=== PATIENT | female | born 1950 | race Caucasian/White ===

== ENCOUNTER 2021-07-16 00:45 | Emergency (ER) | payer MEDICARE, OTHER, SELFPAY ==
[2021-07-16] VITALS (37 sets, daily range): BP systolic 140–210; BP diastolic 64–110; PULSE 82–113; RESP 14–28; TEMP 37.2; O2SAT 89–97; BMI 24.6
--- NOTE | 2021-07-16 00:56 | DI.CT.S_ITS ---
PROCEDURE: CT STROKE INDICATIONS: stroke symptoms TECHNIQUE: Noncontrast 4.5 mm thick angled axial sections acquired from the foramen magnum to the vertex, with coronal reformats. For radiation dose reduction, the following was used: automated exposure control, adjustment of mA and/or kV according to patient size. COMPARISON: None. FINDINGS: Image quality: Excellent. CSF spaces: Basal cisterns are patent. No extra-axial fluid collections. The ventricles are symmetric in size and shape. Brain: No acute intracranial hemorrhage. There is loss of acevedo-white matter differentiation within the left parietal lobe and possibly the left posterior temporal lobe and left occipital lobe, suspicious for acute infarct. A punctate calcification is seen in the left globus pallidus. There is cerebral volume loss for age, with resultant ventricular and sulcal prominence. There are periventricular and deep white matter chronic small vessel ischemic changes. There is intracranial internal carotid artery atherosclerosis. Skull and face: Calvarium and visualized facial bones appear intact, without suspicious lesions. Sinuses: Visualized sinuses and mastoids are clear. IMPRESSION: Loss of acevedo-white matter differentiation in the left parietal lobe and possibly the posterior left temporal lobe and left occipital lobe is suspicious for acute infarct. No mass effect or hemorrhagic conversion. Findings were discussed with the referring physician, Dr. Carolina, by telephone on 07/16/2021 at 1:27 AM. This study fulfills neurological imaging criteria for inclusion or exclusion of acute stroke therapies based on available published neurological guidelines. Dictated by: Minh Smith M.D. on 07/16/2021 at 1:23 Approved by: Minh Smith M.D. on 07/16/2021 at 1:30
--- NOTE | 2021-07-16 00:57 | DI.CT.S_ITS ---
PROCEDURE: CT ANGIO HEAD AND NECK INDICATIONS: stroke symptoms TECHNIQUE: After the administration of intravenous contrast, 1 mm thick sections acquired from the aortic arch through the [place]. Post-contrast 4.5 mm thick sections then re-acquired from the foramen magnum to the vertex. 3-dimensional jqvxbzj-tphmbmcyz-avyzuaegep (MIP) and/or volume rendering reformats were acquired of the central intracranial vasculature and neck separately. COMPARISON: None. FINDINGS: Image quality: Excellent. BRAIN: CSF spaces: Ventricles are normal in size and shape. Basal cisterns are patent. No extra-axial fluid collections. Brain: No midline shift. No intracranial bleeds or masses. Ghosh-white matter interface appears intact. Skull and face: Calvarium and facial bones appear intact, without suspicious lesions. Orbits appear normal. Sinuses: Sinuses and mastoids are clear. HEAD CT ANGIOGRAPHY: Anterior circulation: Intracranial internal carotid arteries are normal in size and flow. There is a hypoplastic A1 segment of the right anterior cerebral artery, with predominant filling of the distal right DAVE via a patent anterior communicating artery. There is occlusion of a posterior M3/M4 branch of the left middle cerebral artery (88-89/13). There appears to be some retrograde filling via collateral vessels. The right middle cerebral artery is patent. No aneurysms are seen. Posterior circulation: Visualized portions of the vertebral arteries demonstrate normal caliber, and join to form a normal appearing basilar artery. The right MANDARIN TEACHER is fed primarily via a large posterior communicating artery. Flow within the posterior cerebral arteries is normal and symmetric. No aneurysms are seen. NECK CT ANGIOGRAPHY: Carotid system: The great vessels demonstrate a conventional anatomy as they arise from the aortic arch. The origins of the common carotid arteries appear patent. The common carotid arteries demonstrate normal caliber and courses. The bifurcation regions are both widely patent. The internal carotid arteries demonstrate normal calibers. Tortuosity of the internal carotid arteries is seen bilaterally with a somewhat spiral appearance of the left internal carotid artery. Posterior circulation: The origins of the vertebral arteries both appear widely patent. The more superior extracranial portions of both vertebral arteries also demonstrate normal courses and calibers. They join to form a normal appearing basilar artery. Soft tissues: Visualized neck soft tissues demonstrate no suspicious abnormalities. A large right pleural effusion is seen with nodular thickening of the right pleural surface that is suspicious for malignant involvement. Bones: No suspicious bony lesions. Multilevel degenerative changes are seen in the spine. IMPRESSION: 1. 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 Some distal flow is seen via collateral vessels. No proximal vessel occlusion is seen. 2. No hemodynamically significant stenosis or occlusion within the major vessels of the neck. 3. Left parietal loss of ghosh-white matter differentiation is again seen that is suspicious for an acute stroke. No mass effect or hemorrhagic conversion. 4. Large right pleural effusion with associated nodular pleural thickening is suspicious for malignant involvement of the pleura. Findings were discussed with the referring physician, Dr. Carolina, by telephone on 07/16/2021 at 1:49 AM. Any quantitative measurements of stenosis were performed using NASCET criteria. Dictated by: Minh Smith M.D. on 07/16/2021 at 1:32 Approved by: Minh Smith M.D. on 07/16/2021 at 1:55
--- NOTE | 2021-07-16 00:58 | ED_ITS ---
HPI - General Adult <Zuleyma Carolina MD - Last Filed: 07/20/21 18:11> General Chief complaint: Neuro Symptoms/Deficit Stated complaint: pos. stroke Time Seen by Provider: 07/16/21 00:54 History of Present Illness HPI narrative: 70-year-old woman [place] with her reporting an episode of significant dizziness around 9 or 10:00 a.m. on July 15. It lasted for approximately an hour she felt better. Around dinner time her husba nd noted that she was less responsive and more fatigued she went to bed at 8:00 a.m. woke up at midnight with obvious deficits and not making any sense. notes that she has not had a fever but has reported a mild cough over the last week or so. He does not think that she has had any chest pain, vomiting, diarrhea, abdominal pain, headaches or other complaints recently. She is unable to offer much history or directly answer questions reliably. Related Data Home Medications Medication Instructions Recorded Confirmed atorvastatin 40 mg tablet mg 07/16/21 azelastine 137 mcg (0.1 %) nasal INTRANASAL 07/16/21 spray aerosol Allergies Allergy/AdvReac Type Severity Reaction Status Date / Time No Known Drug Allergies Allergy Verified 07/16/21 01:27 Review of Systems <Zuleyma Carolina MD - Last Filed: 07/20/21 18:11> Review of Systems Narrative: Remainder of complete review of systems is otherwise unremarkable except for that included in the HPI. Patient History <Zuleyma Carolina MD - Last Filed: 07/20/21 18:11> Social History Smoking Status: Never smoker Exam <Zuleyma Carolina MD - Last Filed: 07/20/21 18:11> Initial Vital Signs Initial Vital Signs: Vital Signs Pulse Rate 111 H 07/16/21 00:53 Pulse Oximetry 95 07/16/21 00:53 General: Healthy appearing, in no acute distress. Well-nourished well-developed HEENT: Moist mucous membranes, normal sclera with reactive pupils, Neck: No JVD, supple Respiratory: Lungs are clear to auscultation, no wheezing no rales no rhonchi. Full and symmetrical air movement Cardiac: Regular rate and rhythm no murmurs no bruits Abdomen: Soft, nontender, good bowel tones, no flank pain Skin: Warm and dry, no rashes Neurologic: Confused, significant right-sided neglect, Extremities: No trauma, well perfused Psych: Cooperative, appropriate insight and affect NIH Stroke Scale/Score (NIHSS) on 07/16/2021 RESULT SUMMARY: 9 points NIH Stroke Scale INPUTS: 1A: Level of consciousness ?> 1 = Arouses to minor stimulation 1B: Ask month and age ?> 2 = 0 questions right 1C: 'Blink eyes' & 'squeeze hands' ?> 1 = Performs 1 task 2: Horizontal extraocular movements ?> 1 = Partial gaze palsy: corrects with oculocephalic reflex 3: Visual story ?> 0 = No visual loss 4: Facial palsy ?> 0 = Normal symmetry 5A: Left arm motor drift ?> 0 = No drift for 10 seconds 5B: Right arm motor drift ?> 0 = No drift for 10 seconds 6A: Left leg motor drift ?> 0 = No drift for 5 seconds 6B: Right leg motor drift ?> 0 = No drift for 5 seconds 7: Limb Ataxia ?> 1 = Ataxia in 1 Limb 8: Sensation ?> 0 = Normal; no sensory loss 9: Language/aphasia ?> 1 = Mild-moderate aphasia: some obvious changes, without significant limitation 10: Dysarthria ?> 0 = Normal 11: Extinction/inattention ?> 2 = Profound heather-inattention (ex: does not recognize own hand) <Tien Frias MD - Last Filed: 07/16/21 14:22> Initial Vital Signs Initial Vital Signs: Vital Signs Pulse Rate 111 H 07/16/21 00:53 Pulse Oximetry 95 07/16/21 00:53 Course <Zuleyma Carolina MD - Last Filed: 07/20/21 18:11> Orders Ordered: Discontinued Medications Aspirin (Aspirin 81 Mg Chew Tab) 324 mg PO NOW ONE Stop: 07/16/21 08:05 Last Admin: 07/16/21 11:08 Dose: 324 mg Documented by: BRIAN Atorvastatin Calcium (Atorvastatin 20 Mg Tablet) 80 mg PO NOW ONE Stop: 07/16/21 08:05 Last Admin: 07/16/21 10:53 Dose: 80 mg Documented by: BRIAN Sodium Chloride (Normal Saline 0.9%) 1,000 mls @ 150 mls/hr IV CONT LEVON Last Infusion: 07/16/21 15:25 Dose: 0 mls/hr Documented by: Admin: 07/16/21 04:25 Dose: 150 mls/hr Documented by: KUNAL Vital Signs Vital signs: Vital Signs - 8 hr 07/16/21 06:30 07/16/21 07:00 07/16/21 07:30 Pulse Rate 89 89 90 Respiratory Rate 16 17 17 Blood Pressure 152/68 H 140/64 146/67 H Pulse Oximetry 93 92 94 07/16/21 08:00 07/16/21 08:03 07/16/21 10:12 Pulse Rate 99 H 98 H Respiratory Rate 22 23 Blood Pressure 158/71 H 140/78 Pulse Oximetry 95 95 07/16/21 10:13 07/16/21 10:15 07/16/21 10:30 Pulse Rate 106 H 97 H 90 Respiratory Rate 27 H 17 16 Blood Pressure 167/81 H 159/74 H Pulse Oximetry 92 91 07/16/21 11:00 07/16/21 11:12 07/16/21 11:30 Pulse Rate 99 H 97 H 86 Respiratory Rate 22 24 17 Blood Pressure 192/90 H 184/81 H 165/76 H Pulse Oximetry 93 97 92 07/16/21 12:00 07/16/21 12:30 07/16/21 13:00 Pulse Rate 87 82 92 H Respiratory Rate 16 18 17 Blood Pressure 157/74 H 152/72 H 145/74 H Pulse Oximetry 92 92 95 07/16/21 13:30 Pulse Rate 92 H Respiratory Rate 18 Blood Pressure 158/82 H Pulse Oximetry 95 <Tien Frias MD - Last Filed: 07/16/21 14:22> Orders Ordered: Discontinued Medications Aspirin (Aspirin 81 Mg Chew Tab) 324 mg PO NOW ONE Stop: 07/16/21 08:05 Last Admin: 07/16/21 11:08 Dose: 324 mg Documented by: BRIAN Atorvastatin Calcium (Atorvastatin 20 Mg Tablet) 80 mg PO NOW ONE Stop: 07/16/21 08:05 Last Admin: 07/16/21 10:53 Dose: 80 mg Documented by: BRIAN Sodium Chloride (Normal Saline 0.9%) 1,000 mls @ 150 mls/hr IV CONT LEVON Last Infusion: 07/16/21 15:25 Dose: 0 mls/hr Documented by: Admin: 07/16/21 04:25 Dose: 150 mls/hr Documented by: KUNAL Vital Signs Vital signs: Vital Signs - 8 hr 07/16/21 06:30 07/16/21 07:00 07/16/21 07:30 Pulse Rate 89 89 90 Respiratory Rate 16 17 17 Blood Pressure 152/68 H 140/64 146/67 H Pulse Oximetry 93 92 94 07/16/21 08:00 07/16/21 08:03 07/16/21 10:12 Pulse Rate 99 H 98 H Respiratory Rate 22 23 Blood Pressure 158/71 H 140/78 Pulse Oximetry 95 95 07/16/21 10:13 07/16/21 10:15 07/16/21 10:30 Pulse Rate 106 H 97 H 90 Respiratory Rate 27 H 17 16 Blood Pressure 167/81 H 159/74 H Pulse Oximetry 92 91 07/16/21 11:00 07/16/21 11:12 07/16/21 11:30 Pulse Rate 99 H 97 H 86 Respiratory Rate 22 24 17 Blood Pressure 192/90 H 184/81 H 165/76 H Pulse Oximetry 93 97 92 07/16/21 12:00 07/16/21 12:30 07/16/21 13:00 Pulse Rate 87 82 92 H Respiratory Rate 16 18 17 Blood Pressure 157/74 H 152/72 H 145/74 H Pulse Oximetry 92 92 95 07/16/21 13:30 Pulse Rate 92 H Respiratory Rate 18 Blood Pressure 158/82 H Pulse Oximetry 95 Medical Decision Making <Zuleyma Carolina MD - Last Filed: 07/20/21 18:11> Lab Data Result diagrams: 07/16/21 01:05 07/16/21 01:05 Labs: Lab Results 07/16/21 07/16/21 07/16/21 Range/Units 01:05 01:05 01:21 WBC 10.2 (4.5-11.0) X10^3/uL RBC 5.18 (4.0-5.2) X10^6/uL Hgb 15.5 (12.0-16.0) g/dL Hct 46.2 H (36-46) % MCV 89.2 (80-100) fL MCH 29.9 (26-34) PG MCHC 33.6 (30-36) % RDW 13.8 (11.6-14.8) % Plt Count 200 (150-400) X10^3/uL Neut % (Auto) 63.0 (50-75) % Lymph % (Auto) 22.7 L (25-40) % Lamar % (Auto) 9.4 (3-14) % Eos % (Auto) 2.6 (2-4) % Baso % (Auto) 2.3 H (0-2) % Neut # (Auto) 6400 (2128-3717) /uL Lymph # (Auto) 2300 (9250-8357) /uL Lamar # (Auto) 1000 H (0-900) /uL Eos # (Auto) 300 (0-450) /uL Baso # (Auto) 200 H (0-100) /uL Sodium 138 (137-145) mmol/L Potassium 3.9 (3.4-5.1) mmol/L Chloride 106 (98-107) mmol/L Carbon Dioxide 24 (22-32) mmol/L BUN 14 (7-17) mg/dL Creatinine 0.72 (0.52-1.04) mg/dL Estimated GFR > 60.0 (>60) mL/min BUN/Creatinine Ratio 19.4 (6-22) Glucose 127 H (80-110) mg/dL Calcium 9.7 (8.4-10.2) mg/dL Total Bilirubin 0.8 (0.2-1.3) mg/dL AST 43 H (14-36) IU/L ALT 31 (<35) IU/L Alkaline Phosphatase 97 (38-126) U/L Total Creatine Kinase 144 H (30-135) U/L CK-MB (CK-2) 7.79 H (<2.37) ng/mL CK-MB (CK-2) Rel Index 5.4 H (1.5-5.0) % Troponin I 1.870 H* (0.01-0.034) ng/mL Total Protein 8.1 (6.3-8.2) g/dL Albumin 5.0 (3.5-5.0) g/dL Globulin 3.1 (1.7-4.1) g/dL Albumin/Globulin Ratio 1.6 (1.0-2.8) Urine Color Urine Appearance Urine pH (4.5-8.0) Ur Specific Etters (1.000-1.035) Urine Protein (Negative) Urine Glucose (UA) (Negative) g/dL Urine Ketones (NEGATIVE) Urine Occult Blood (Negative) Urine Nitrate (Negative) Urine Bilirubin (NEGATIVE) Urine Urobilinogen (0.2) E.U./dL Ur Leukocyte Esterase (NEGATIVE) Urine RBC (0-5/HPF) Urine WBC (0-5/HPF) Ur Squamous Epith Cells (0-5/HPF) Urine Bacteria (None) Ur Culture Indicated? SARS-CoV-2 (PCR) Negative (Negative) 07/16/21 07/16/21 Range/Units 03:00 06:12 WBC (4.5-11.0) X10^3/uL RBC (4.0-5.2) X10^6/uL Hgb (12.0-16.0) g/dL Hct (36-46) % MCV (80-100) fL MCH (26-34) PG MCHC (30-36) % RDW (11.6-14.8) % Plt Count (150-400) X10^3/uL Neut % (Auto) (50-75) % Lymph % (Auto) (25-40) % Lamar % (Auto) (3-14) % Eos % (Auto) (2-4) % Baso % (Auto) (0-2) % Neut # (Auto) (1710-5379) /uL Lymph # (Auto) (7468-7196) /uL Lamar # (Auto) (0-900) /uL Eos # (Auto) (0-450) /uL Baso # (Auto) (0-100) /uL Sodium (137-145) mmol/L Potassium (3.4-5.1) mmol/L Chloride (98-107) mmol/L Carbon Dioxide (22-32) mmol/L BUN (7-17) mg/dL Creatinine (0.52-1.04) mg/dL Estimated GFR (>60) mL/min BUN/Creatinine Ratio (6-22) Glucose (80-110) mg/dL Calcium (8.4-10.2) mg/dL Total Bilirubin (0.2-1.3) mg/dL AST (14-36) IU/L ALT (<35) IU/L Alkaline Phosphatase (38-126) U/L Total Creatine Kinase (30-135) U/L CK-MB (CK-2) (<2.37) ng/mL CK-MB (CK-2) Rel Index (1.5-5.0) % Troponin I 1.840 H* (0.01-0.034) ng/mL Total Protein (6.3-8.2) g/dL Albumin (3.5-5.0) g/dL Globulin (1.7-4.1) g/dL Albumin/Globulin Ratio (1.0-2.8) Urine Color Yellow Urine Appearance Clear Urine pH 7.0 (4.5-8.0) Ur Specific Etters 1.010 (1.000-1.035) Urine Protein Trace H (Negative) Urine Glucose (UA) Negative (Negative) g/dL Urine Ketones Negative (NEGATIVE) Urine Occult Blood 2+ H (Negative) Urine Nitrate Negative (Negative) Urine Bilirubin Negative (NEGATIVE) Urine Urobilinogen 0.2 (0.2) E.U./dL Ur Leukocyte Esterase 1+ H (NEGATIVE) Urine RBC 1-5/hpf (0-5/HPF) Urine WBC 1-5/hpf (0-5/HPF) Ur Squamous Epith Cells 1-5 /hpf (0-5/HPF) Urine Bacteria Few (2-10) H (None) Ur Culture Indicated? Specimen cultured SARS-CoV-2 (PCR) (Negative) Point of Care Testing Glucose POC 125 Urine Dip Bedside Urine Glucose Negative Bedside Urine Bilirubin - Negative Bedside Urine Ketone - Negative Urine Specific Etters 1.015 Bedside Urine Occult Blood ++ Bedside Urine pH 6.0 Bedside Urine Protein - Negative Bedside Urine Urobilinogen - Negative Bedside Urine Nitrite - Negative Bedside Urine Leukocytes - Negative Esterase Point of care testing: Point of Care Testing Glucose POC 125 Urine Dip Bedside Urine Glucose Negative Bedside Urine Bilirubin - Negative Bedside Urine Ketone - Negative Urine Specific Etters 1.015 Bedside Urine Occult Blood ++ Bedside Urine pH 6.0 Bedside Urine Protein - Negative Bedside Urine Urobilinogen - Negative Bedside Urine Nitrite - Negative Bedside Urine Leukocytes - Negative Esterase Imaging Data CT scan - head: Radiologist's Impression: FINDINGS:? Image quality:? Excellent.? ? CSF spaces:? Basal cisterns are patent.? No extra-axial fluid collections.? The ventricles are symmetric in size and shape.? ? Brain:? No acute intracranial hemorrhage.? There is loss of ghosh-white matter differentiation within the left parietal lobe and possibly the left posterior temporal lobe and left occipital lobe, suspicious for acute infarct.? A punctate calcification is seen in the left globus pallidus.? There is cerebral volume loss for age, with resultant ventricular and sulcal prominence.? There are periventricular and deep white matter chronic small vessel ischemic changes.? There is intracranial internal carotid artery atherosclerosis.? ? Skull and face:? Calvarium and visualized facial bones appear intact, without suspicious lesions.? ? Sinuses:? Visualized sinuses and mastoids are clear.? ? IMPRESSION:? Loss of ghosh-white matter differentiation in the left parietal lobe and possibly the posterior left temporal lobe and left occipital lobe is suspicious for acute infarct.? No mass effect or hemorrhagic conversion.? ? Findings were discussed with the referring physician, Dr. Carolina, by telephone on 07/16/2021 at 1:27 AM. ? ? This study fulfills neurological imaging criteria for inclusion or exclusion of acute stroke therapies based on available published neurological guidelines.? ? ? Dictated by: Minh Smith M.D. on 07/16/2021 at 1:23 ? ? CTA head and neck: Radiologist's Impression: FINDINGS:? Image quality:? Excellent.? ? BRAIN:? CSF spaces:? Ventricles are normal in size and shape.? Basal cisterns are patent.? No extra-axial fluid collections.? ? Brain:? No midline shift.? No intracranial bleeds or masses.? Ghosh-white matter interface appears intact.? ? Skull and face:? Calvarium and facial bones appear intact, without suspicious lesions.? Orbits appear normal.? ? Sinuses:? Sinuses and mastoids are clear.? ? HEAD CT ANGIOGRAPHY:? Anterior circulation:? Intracranial internal carotid arteries are normal in size and flow.? There is a hypoplastic A1 segment of the right anterior cerebral artery, with predominant filling of the distal right DAVE via a patent anterior communicating artery.? There is occlusion of a posterior M3/M4 branch of the left middle cerebral artery (88-89/13).? There appears to be some retrograde filling via collateral v essels.? The right middle cerebral artery is patent.? No aneurysms are seen.? ? Posterior circulation:? Visualized portions of the vertebral arteries demonstrate normal caliber, and join to form a normal appearing basilar artery.? The right JEWEL SETTER is fed primarily via a large posterior communicating artery.? Flow within the posterior cerebral arteries is normal and symmetric.? No aneurysms are seen.? ? NECK CT ANGIOGRAPHY:? Carotid system:? The great vessels demonstrate a conventional anatomy as they arise from the aortic arch.? The origins of the common carotid arteries appear patent.? The common carotid arteries demonstrate normal caliber and courses.? The bifurcation regions are both widely patent.? The internal carotid arteries demonstrate normal calibers.? Tortuosity of the internal carotid arteries is seen bilaterally with a somewhat spiral appearance of the left internal carotid artery. ? Posterior circulation:? The origins of the vertebral arteries both appear widely patent.? The more superior extracranial portions of both vertebral arteries also demonstrate normal courses and calibers.? They join to form a normal appearing basilar artery.? ? Soft tissues:? Visualized neck soft tissues demonstrate no suspicious abnormalities.? A large right pleural effusion is seen with nodular thickening of the right pleural surface that is suspicious for malignant involvement. ? Bones:? No suspicious bony lesions.? Multilevel degenerative changes are seen in the spine. ? ? IMPRESSION:? 1. Occlusion of a posterior distal M3/M4 branch of the left middle cerebral artery.? Some distal flow is seen via collateral vessels.? No proximal vessel occlusion is seen. 2. No hemodynamically significant stenosis or occlusion within the major vessels of the neck. 3. Left parietal loss of ghosh-white matter differentiation is again seen that is suspicious for an acute stroke.? No mass effect or hemorrhagic conversion. 4. Large right pleural effusion with associated nodular pleural thickening is suspicious for malignant involvement of the pleura.? ? Findings were discussed with the referring physician, Dr. Carolina, by telephone on 07/16/2021 at 1:49 AM. ? Any quantitative measurements of stenosis were performed using NASCET criteria.? ? ? Dictated by: Minh Smith M.D. on 07/16/2021 at 1:32 ? ? Chest x-ray: Radiologist's Impression: FINDINGS:? ? Surgical changes and devices:? None.? ? Lungs and pleura:? Moderate right pleural effusion.? Prominence of the right hilum is seen.? Pleural thickening and nodularity is better demonstrated on the recent CTA of the head and neck.? No pneumothorax.? The left lung is clear. ? Mediastinum:? Mediastinal contours appear normal.? Heart size is normal.? Mild aortic atherosclerotic calcifications. ? Bones and chest wall:? No suspicious bony lesions.? Overlying soft tissues appe ar unremarkable.? ? IMPRESSION:? Moderate right pleural effusion.? Nodular thickening of the pleura is better demonstrated on recent CT a head/neck.? Right hilar prominence is nonspecific and may be secondary to pleural thickening, hilar lymphadenopathy, or a pulmonary mass. ? ? Dictated by: Minh Smith M.D. on 07/16/2021 at 1:56 ? ? CT chest, abdomen, pelvis: Radiologist's Impression: 3.2 cm spiculated mass in the right middle lobe felt to be malignant, suspect multiple pleural blade based metastases in the right hemithorax, moderate right layering pleural effusion, compressive atelectasis right lower lobe. No evidence of primary malignancy or metastatic processes in the abdomen or pelvis. Subcentimeter shotty retrocecal lymph node. Jorge Pisano MD ECG Data Interpretation: Sinus tachycardia at 1:04 a.m. Left bundle branch block left axis deviation, -61 not meeting full criteria for Sgarbossas criteria at this time, no prior EKGs for comparrison MDM Narrative Medical decision making narrative: 70-year-old woman presents at least 16 hours after onset of symptoms consistent with stroke with right-sided neglect. She is not a tPA candidate due to time window. CTA shows small M3/M4 occlusion of the left middle cerebral artery with distal flow seen via collateral vessels. Chest x-ray shows significant right-sided pleural effusion, right hilar prominence and pleural thickening concerning for primary lung cancer versus metastatic disease EKG has a left bundle branch block with significant changes not yet meeting Sgarbossa criteria for [place] but she does have a significantly elevated troponin 1.8. 3am: Care is reviewed with stroke neurologist, Dr. Jin. Given the stroke area seen on the head CTs, anticoagulation is a significant risk for conversion to hemorrhagic stroke. His recommendation was to not treat her blood pressure unless it was higher in continuing to increase (it currently is decreasing without additional treatment), it is possible that the significantly elevated troponin is due to large stroke. She is not an intervention candidate for the stroke. Given the surprising chest x-ray findings will do scans of her chest abdomen pel vis Patient will need admission and further workup will begin looking for bed availability, significantly limited at this time CT scan returns suggesting new diagnosis right middle lung spiculated mass consistent 430am CT scan of the chest shows a 3.2 cm spiculated mass in the right middle lobe deemed malignant with multiple pleural based metastatic lesions in the right hemithorax and the pleural effusion appreciated. No significant pathology appreciated in abdomen or pelvis. 530am pt had episode of rights sided CP. Associated with mild tachycardia. She described ?I feel like I can not get...? Poorly able to verbalize which she was actually sensing. On physical exam belly was benign no palpable pain or pain behaviors. She stated that pain was improving. EKG shows similar right bundle branch findings without changes. Troponin is repeated. 635 Case is reviewed with [facility], will help with looking for bed placement 7am care is transferred to Dr Frias <Tien Frias MD - Last Filed: 07/16/21 14:22> Lab Data Labs: Lab Results 07/16/21 07/16/21 07/16/21 Range/Units 01:05 01:05 01:21 WBC 10.2 (4.5-11.0) X10^3/uL RBC 5.18 (4.0-5.2) X10^6/uL Hgb 15.5 (12.0-16.0) g/dL Hct 46.2 H (36-46) % MCV 89.2 (80-100) fL MCH 29.9 (26-34) PG MCHC 33.6 (30-36) % RDW 13.8 (11.6-14.8) % Plt Count 200 (150-400) X10^3/uL Neut % (Auto) 63.0 (50-75) % Lymph % (Auto) 22.7 L (25-40) % Lamar % (Auto) 9.4 (3-14) % Eos % (Auto) 2.6 (2-4) % Baso % (Auto) 2.3 H (0-2) % Neut # (Auto) 6400 (8023-7075) /uL Lymph # (Auto) 2300 (9198-8822) /uL Lamar # (Auto) 1000 H (0-900) /uL Eos # (Auto) 300 (0-450) /uL Baso # (Auto) 200 H (0-100) /uL Sodium 138 (137-145) mmol/L Potassium 3.9 (3.4-5.1) mmol/L Chloride 106 (98-107) mmol/L Carbon Dioxide 24 (22-32) mmol/L BUN 14 (7-17) mg/dL Creatinine 0.72 (0.52-1.04) mg/dL Estimated GFR > 60.0 (>60) mL/min BUN/Creatinine Ratio 19.4 (6-22) Glucose 127 H (80-110) mg/dL Calcium 9.7 (8.4-10.2) mg/dL Total Bilirubin 0.8 (0.2-1.3) mg/dL AST 43 H (14-36) IU/L ALT 31 (<35) IU/L Alkaline Phosphatase 97 (38-126) U/L Total Creatine Kinase 144 H (30-135) U/L CK-MB (CK-2) 7.79 H (<2.37) ng/mL CK-MB (CK-2) Rel Index 5.4 H (1.5-5.0) % Troponin I 1.870 H* (0.01-0.034) ng/mL Total Protein 8.1 (6.3-8.2) g/dL Albumin 5.0 (3.5-5.0) g/dL Globulin 3.1 (1.7-4.1) g/dL Albumin/Globulin Ratio 1.6 (1.0-2.8) Urine Color Urine Appearance Urine pH (4.5-8.0) Ur Specific Etters (1.000-1.035) Urine Protein (Negative) Urine Glucose (UA) (Negative) g/dL Urine Ketones (NEGATIVE) Urine Occult Blood (Negative) Urine Nitrate (Negative) Urine Bilirubin (NEGATIVE) Urine Urobilinogen (0.2) E.U./dL Ur Leukocyte Esterase (NEGATIVE) Urine RBC (0-5/HPF) Urine WBC (0-5/HPF) Ur Squamous Epith Cells (0-5/HPF) Urine Bacteria (None) Ur Culture Indicated? SARS-CoV-2 (PCR) Negative (Negative) 07/16/21 07/16/21 Range/Units 03:00 06:12 WBC (4.5-11.0) X10^3/uL RBC (4.0-5.2) X10^6/uL Hgb (12.0-16.0) g/dL Hct (36-46) % MCV (80-100) fL MCH (26-34) PG MCHC (30-36) % RDW (11.6-14.8) % Plt Count (150-400) X10^3/uL Neut % (Auto) (50-75) % Lymph % (Auto) (25-40) % Lamar % (Auto) (3-14) % Eos % (Auto) (2-4) % Baso % (Auto) (0-2) % Neut # (Auto) (2264-6153) /uL Lymph # (Auto) (7983-6086) /uL Lamar # (Auto) (0-900) /uL Eos # (Auto) (0-450) /uL Baso # (Auto) (0-100) /uL Sodium (137-145) mmol/L Potassium (3.4-5.1) mmol/L Chloride (98-107) mmol/L Carbon Dioxide (22-32) mmol/L BUN (7-17) mg/dL Creatinine (0.52-1.04) mg/dL Estimated GFR (>60) mL/min BUN/Creatinine Ratio (6-22) Glucose (80-110) mg/dL Calcium (8.4-10.2) mg/dL Total Bilirubin (0.2-1.3) mg/dL AST (14-36) IU/L ALT (<35) IU/L Alkaline Phosphatase (38-126) U/L Total Creatine Kinase (30-135) U/L CK-MB (CK-2) (<2.37) ng/mL CK-MB (CK-2) Rel Index (1.5-5.0) % Troponin I 1.840 H* (0.01-0.034) ng/mL Total Protein (6.3-8.2) g/dL Albumin (3.5-5.0) g/dL Globulin (1.7-4.1) g/dL Albumin/Globulin Ratio (1.0-2.8) Urine Color Yellow Urine Appearance Clear Urine pH 7.0 (4.5-8.0) Ur Specific Etters 1.010 (1.000-1.035) Urine Protein Trace H (Negative) Urine Glucose (UA) Negative (Negative) g/dL Urine Ketones Negative (NEGATIVE) Urine Occult Blood 2+ H (Negative) Urine Nitrate Negative (Negative) Urine Bilirubin Negative (NEGATIVE) Urine Urobilinogen 0.2 (0.2) E.U./dL Ur Leukocyte Esterase 1+ H (NEGATIVE) Urine RBC 1-5/hpf (0-5/HPF) Urine WBC 1-5/hpf (0-5/HPF) Ur Squamous Epith Cells 1-5 /hpf (0-5/HPF) Urine Bacteria Few (2-10) H (None) Ur Culture Indicated? Specimen cultured SARS-CoV-2 (PCR) (Negative) Point of Care Testing Glucose POC 125 Urine Dip Bedside Urine Glucose Negative Bedside Urine Bilirubin - Negative Bedside Urine Ketone - Negative Urine Specific Etters 1.015 Bedside Urine Occult Blood ++ Bedside Urine pH 6.0 Bedside Urine Protein - Negative Bedside Urine Urobilinogen - Negative Bedside Urine Nitrite - Negative Bedside Urine Leukocytes - Negative Esterase Point of care testing: Point of Care Testing Glucose POC 125 Urine Dip Bedside Urine Glucose Negative Bedside Urine Bilirubin - Negative Bedside Urine Ketone - Negative Urine Specific Etters 1.015 Bedside Urine Occult Blood ++ Bedside Urine pH 6.0 Bedside Urine Protein - Negative Bedside Urine Urobilinogen - Negative Bedside Urine Nitrite - Negative Bedside Urine Leukocytes - Negative Esterase MDM Narrative Additional Information: Care was assumed from Dr. Carolina at change of shift. Patient presented with an acute CVA with cognitive deficits and right side neglect. Noncontrast CT showed evidence of an acute CVA, CTA revealed in M3/4 left side lesions that were not approachable for IR. Neurology consult confirmed that she was not a tPA candidate. She has elevated troponin with a left bundle branch block. No prior EKGs are available. The patient declines active chest pain. Repeat troponin is unchanged. In addition to the neurology and Cardiology findings, patient was found to have a right middle lobe cancer, noted on x-ray and confirmed with CT. This is a previously unknown entity. She has no significant past medical history, she is believed to not be a medications. At the time I assumed care, she has expressive aphasia, but does attempt to communicate. She follows commands. She smiles, she moves all extremities on command. 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 She has hypertension, this was discussed with the 1st neurologist, she was given permissive hypertension. MRI was done awaiting disposition. Was confirmed in the left parietal lobe with extension into the posterior temporal lobe and superior occipital lobe. I discussed the case with Neurology at [facility],Dr Viera who agreed to see the patient in consultation. I did is encouragement cardiology became involved. The LBBB was noted. The elevated troponin did not cry increase over a 6 hour. . This is likely due to the CVA. If the patient a STEMI the troponin would be increasing. Dr. Faye, hospitalist, became involved to accept the patient. Aspirin and atorvastatin were added to the patient's treatment. Is noted the patient has a stroke, an elevated troponin of unclear etiology, likely the stroke. The patient has newly diagnosed right middle lobe lung cancer. The patient is clinically stable, ready for transfer. She will go to [facility] by [facility]. Diagnosis: 1. Acute stroke 2. Elevated troponin as discussed above. 3. Right middle lobe lung cancer. Also, the patient's requested transfer to [facility]. This was explored. Stroke Neurology, Dr. Tena, at return the call. She offered her help, but after multiple calls there is a shortage of beds. The best she could offer would be an ER to ER transfer. Dr. Tena recommended proceeding with a transfer to [facility]. Carl PALACIO 07/16/21 @13:20 Discharge Plan Departure Patient Disposition: [facility] Clinical Impression: Metastatic primary lung cancer, Elevated troponin Cerebrovascular accident Qualifiers: CVA mechanism: embolism Precerebral and cerebral artery: other cerebral artery Qualified Code(s): I63.49 - Cerebral infarction due to embolism of other cerebral artery Prescriptions: No Action azelastine 137 mcg (0.1 %) aerosol,spray INTRANASAL 0RF atorvastatin 40 mg tablet 0RF
[2021-07-16 01:24] LABS: Add Manual Diff / Slide Review NO; Basophils Absolute Auto 200 /uL (0-100); Basophils Percent Auto 2.3 % (0-2); Eosinophils Absolute Auto 300 /uL (0-450); Eosinophils Percent Auto 2.6 % (2-4); Hematocrit 46.2 % (36-46); Hemoglobin 15.5 g/dL (12.0-16.0); Lymphocytes Absolute Auto 2300 /uL (1100-4500); Lymphocytes Percent Auto 22.7 % (25-40); Mean Corpuscular HGB Conc 33.6 % (30-36); Mean Corpuscular Hemoglobin 29.9 PG (26-34); Mean Corpuscular Volume 89.2 fL (80-100); Monocytes Absolute Auto 1000 /uL (0-900); Monocytes Percent Auto 9.4 % (3-14); Neutrophils Absolute Auto 6400 /uL (1500-7000); Platelet Count 200 X10^3/uL (150-400); Red Blood Cell Count 5.18 X10^6/uL (4.0-5.2); Red Cell Distribution Width 13.8 % (11.6-14.8); White Blood Cell Count 10.2 X10^3/uL (4.5-11.0)
--- NOTE | 2021-07-16 01:27 | DI.RAD.S_ITS ---
PROCEDURE: XR CHEST 1V INDICATIONS: stroke protocol TECHNIQUE: One view of the chest was acquired. COMPARISON: None. FINDINGS: Surgical changes and devices: None. Lungs and pleura: Moderate right pleural effusion. Prominence of the right hilum is seen. Pleural thickening and nodularity is better demonstrated on the recent CTA of the head and neck. No pneumothorax. The left lung is clear. Mediastinum: Mediastinal contours appear normal. Heart size is normal. Mild aortic atherosclerotic calcifications. Bones and chest wall: No suspicious bony lesions. Overlying soft tissues appear unremarkable. IMPRESSION: Moderate right pleural effusion. Nodular thickening of the pleura is better demonstrated on recent CT a head/neck. Right hilar prominence is nonspecific and may be secondary to pleural thickening, hilar lymphadenopathy, or a pulmonary mass. Dictated by: Minh Smith M.D. on 07/16/2021 at 1:56 Approved by: Minh Smith M.D. on 07/16/2021 at 1:58
[2021-07-16 01:31] LABS: Alanine Aminotransferase 31 IU/L (<35); Albumin Globulin Ratio 1.6 (1.0-2.8); Alkaline Phosphatase 97 U/L (38-126); Aspartate Aminotransferase 43 IU/L (14-36); BUN Creatinine Ratio 19.4 (6-22); Bilirubin Total 0.8 mg/dL (0.2-1.3); Blood Urea Nitrogen 14 mg/dL (7-17); Calcium 9.7 mg/dL (8.4-10.2); Carbon Dioxide 24 mmol/L (22-32); Chloride 106 mmol/L (98-107); Creatine Kinase 144 U/L (30-135); Estimated Glomerular Filt Rate > 60.0 mL/min (>60); Globulin 3.1 g/dL (1.7-4.1); Glucose 127 mg/dL (80-110); HEMOLYSIS < 15 (0-50); Potassium 3.9 mmol/L (3.4-5.1); Sodium 138 mmol/L (137-145); Total Protein 8.1 g/dL (6.3-8.2)
[2021-07-16 01:46] LABS: CKMB % Relative Index 5.4 % (1.5-5.0); Creatine Kinase MB 7.79 ng/mL (<2.37)
[2021-07-16 03:09] LABS: COVID19 -Nasal RAPID Negative (Negative)
[2021-07-16 03:19] LABS: Appearance Urine UA CLEAR; Bilirubin Urine UA NEGATIVE (NEGATIVE); Color Urine UA YELLOW; Glucose Urine UA NEGATIVE (Negative); Ketones Urine UA NEGATIVE (NEGATIVE); Leukocyte Esterase Urine UA 1+ (NEGATIVE); Nitrite Urine UA NEGATIVE (Negative); Occult Blood Urine UA 2+ (Negative); Protein Urine UA TRACE (Negative); Urobilinogen Urine UA 0.2 E.U./dL (0.2)
--- NOTE | 2021-07-16 03:19 | DI.CT.S_ITS ---
PROCEDURE: CT CHEST ABD PEL W CON INDICATIONS: Abnormal chest xray, new stroke, elevated troponin TECHNIQUE: After the administration of oral and intravenous contrast, axial sections acquired from the supraclavicular neck to the pubic symphysis. Coronal and sagittal reformats were performed. For radiation dose reduction, the following was used: automated exposure control, adjustment of mA and/or kV according to patient size. COMPARISON: None. FINDINGS: Image quality: Excellent. CHEST: Lower Neck: No enlarged lymph nodes. Thyroid: Within normal limits. Axillae: No enlarged lymph nodes. Chest Wall: Unremarkable. Lungs and Airways: Right middle lobe spiculated lesion measuring 2.5 x 2.5 cm, (3/150). Dependent atelectasis at the right lower lobe. The central airways are clear. Pleura: Multiple pleural base lesions. For example: -Right mid thorax anteriorly near the pulmonary lesion measuring 3.6 x 1.8 cm, (2/27). -Right upper thorax posterior lateral curvilinear lesion measuring 9 cm, (2/19). -Right lung base 2.8 cm, (2/54). Large right pleural effusion. No left pleural effusion. No pneumothorax. Heart: Heart size is normal. No pericardial effusion. Thoracic Vessels: The aorta and pulmonary arteries demonstrate normal size. Mediastinum and Janis: No enlarged lymph nodes. Esophagus: No wall thickening. Small hiatal hernia. ABDOMEN: Liver: No focal lesion. Gallbladder: Unremarkable. Biliary ducts: Unremarkable. Pancreas: Unremarkable. Spleen: Unremarkable. Adrenal Glands: No nodule. Kidneys and Ureters: No hydronephrosis. Large simple left renal cyst measuring 6.1 cm. Stomach and Bowel: No small bowel obstruction. Diverticulosis. Mild thickening of the distal sigmoid colon, (2/102). Normal appendix. Peritoneum: No abnormal intraperitoneal fluid. No free air. Ventral Wall: No hernia. Abdominal Nodes: Low-density nodule adjacent to the cecum measuring 1.2 cm, (2/99). No additional nodes identified. Vessels: Aorta and inferior vena cava are normal in size. PELVIS: Pelvic Organs: Retroverted uterus. Bladder: Bladder is filled with opacified contrast. No filling defect is identified. Pelvic Nodes: No enlarged lymph nodes. Miscellaneous: No inguinal hernias are seen. Bones: No suspicious lesion identified. No compression fracture. Sacral Tarlov cysts. IMPRESSION: 1. Right middle lobe spiculated lesion measuring 2.5 cm. This is highly suspicious for primary bronchogenic carcinoma. 2. Multiple pleural-based lesions in the right hemithorax. These are most consistent with metastatic lesions. 3. No mediastinal adenopathy identified. 4. Nodule adjacent to the cecum measuring 1.2 cm. This is indeterminate. 5. Thickening in the region of the distal sigmoid colon. There is extensive diverticulosis. No free fluid. Please ensure up-to-date colonoscopy. 6. No suspicious osseous lesions identified. No significant discrepancy with the overnight preliminary interpretation. Dictated by: Mike Evangelista M.D. on 07/16/2021 at 7:17 Approved by: Mike Evangelista M.D. on 07/16/2021 at 7:35
[2021-07-16 03:34] LABS: Bacteria Urine Few (2-10); Culture Indicated Urine Specimen Cultured; RBC Urine 1-5/HPF (0-5/HPF); Squamous Epithelial Cell Urine 1-5 /HPF (0-5/HPF); WBC Urine 1-5/HPF (0-5/HPF)
[2021-07-16] MEDS: SODIUM CHLORIDE 0.9% 1,000 ML 150 ML IV (04:25)
--- NOTE | 2021-07-16 06:51 | DI.MRI.S_ITS ---
PROCEDURE: MR HEAD/BRAIN WO CON INDICATIONS: stroke TECHNIQUE: Noncontrast axial T1 spin echo, axial T2 fast spin echo, sagittal and axial FLAIR, coronal T2 fast spin echo, axial gradient echo, axial diffusion and ADC through the brain. COMPARISON: [facility], CT, CT STROKE, 07/16/2021, 1:06. FINDINGS: Image quality: Excellent. CSF Spaces: Basal cisterns are patent. No extra-axial fluid collections. Ventricles are normal in size and shape. Brain: No intracranial masses or hemorrhage. Findings of chronic microvascular ischemic disease. Restricted diffusion in the left parietal cortex, (). There is restricted diffusion is spanning into the posterior left temporal lobe and superior occipital lobe. There is corresponding T2/FLAIR signal hyperintensity. Brainstem appears normal. No chronic ischemic insults identified. Flow voids on the T2 images appear within normal limits. Skull and face: Calvarium has normal marrow signal. Orbits appear normal. Sinuses: Sinuses and mastoids are clear. IMPRESSION: Acute or subacute infarct in the left parietal lobe cortex with extension into the posterior temporal lobe and superior occipital lobe. Dictated by: Mike Evangelista M.D. on 07/16/2021 at 8:11 Approved by: Mike Evangelista M.D. on 07/16/2021 at 8:19
[2021-07-16] MEDS: ATORVASTATIN 20 MG TABLET 80 MG PO (10:53)
[2021-07-16] MEDS: ASPIRIN 81 MG CHEW TAB 324 MG PO (11:08)
[2021-07-16] MEDS: ASPIRIN 81 MG CHEW TAB (12:21)
--- NOTE | 2021-07-16 12:39 | PC.NURSE ---
The patient has weakness but mobility in right arm and leg. also in left extremities. She has diminished vision in right eye and expressive and receptive aphasia. She states that she knows what she wants to say but is not able to get the words out correctly. No facial drooping is noted.
== END 2021-07-16 15:44 | disposition short-term general hospital (02) ==
PROVIDERS: Emergency Provider Emergency Medicine
DX: I63.412 Cerebral infarction due to embolism of left middle cerebral artery (principal); I63.439 Cerebral infarction due to embolism of unspecified posterior cerebral artery; C34.2 Malignant neoplasm of middle lobe, bronchus or lung; R77.8 Other specified abnormalities of plasma proteins; J90 Pleural effusion, not elsewhere classified; R29.709 NIHSS score 9; R29.710 NIHSS score 10; Z20.822 Contact with and (suspected) exposure to COVID-19
CPT/HCPCS: 36415; 70450; 70496; 70498; 70551; 71045; 71260; 74177; 80053; 81001; 81003; 82550; 82553; 82962; 84484; 85025; 87086; 87635; 93005; 93010; 96360; 96361; 99285; C9803; Q9967

== ENCOUNTER 2021-10-05 10:31 | Emergency (ER) | payer MEDICARE, OTHER, SELFPAY ==
[2021-10-05] VITALS (27 sets, daily range): BP systolic 108–154; BP diastolic 52–104; PULSE 0–123; RESP 0–49; TEMP 36.9; O2SAT 0–94; BMI 20.7
--- NOTE | 2021-10-05 10:54 | DI.RAD.S_ITS ---
PROCEDURE: XR CHEST 1V INDICATIONS: sob, low O2, hx lung ca, tias TECHNIQUE: One view of the chest was acquired. COMPARISON: , CT, CT CHEST ABD PEL W CON, 07/16/2021, 2:27. , CR, XR CHEST 1V, 07/16/2021, 1:32. FINDINGS: There is a moderate to large pleural effusion which is increased in size when compared with 07/16/2021 examination. The previously described right lung and pleural masses are not definitively identified. Also new from comparison CT there is diffuse increased interstitial and airspace opacity in the left lung, nonspecific. There is also some increased interstitial and airspace opacity in the aerated portion of the right upper lobe. Cardiac borders are largely obscured but appear to be normal in size. IMPRESSION: Increased size of right pleural effusion, now moderate to large. Diffusely increased interstitial and airspace opacities in both lungs. This could represent pulmonary edema, pulmonary hemorrhage, or ARDS or an infectious process. Lymphangitic carcinomatosis could be present also. Dictated by: Freddy Blackwood M.D. on 10/05/2021 at 11:43 Approved by: Freddy Blackwood M.D. on 10/05/2021 at 11:48
--- NOTE | 2021-10-05 10:56 | DI.CT.S_ITS ---
PROCEDURE: CT HEAD/BRAIN WO/W CON INDICATIONS: hx cva, states aphasia/weakness worsened. TECHNIQUE: 4.5 mm thick angled axial sections acquired from the foramen magnum to the vertex before and after the administration of intravenous contrast, with coronal and sagittal reformats. For radiation dose reduction, the following was used: automated exposure control, adjustment of mA and/or kV according to patient size. COMPARISON: [facility], MR, MR HEAD/BRAIN WO CON, 07/16/2021, 8:15. [facility], CT, CT STROKE, 07/16/2021, 1:06. FINDINGS: Image quality: Severely degraded by patient motion artifact. CSF Spaces: Basal cisterns are patent. No extra-axial fluid collections. Ventricles are normal in size and shape. Brain: Chronic right frontal-parietal infarct. Chronic left xkgvdgxw-mydercesq-tarpvkcm infarct. No midline shift. No intracranial bleeds or masses. No abnormal intracranial enhancement. Ghosh-white interface appears normal. There is grossly normal postcontrast enhancement involving the central cerebral arteries. Dural sinuses demonstrate normal postcontrast enhancement. Skull and face: Calvarium and visualized facial bones appear intact, without suspicious lesions. Sinuses: Visualized sinuses and mastoids are clear. IMPRESSION: Image quality severely degraded by patient motion artifact. No gross acute intracranial disease process within limitations related to motion artifact. Chronic right frontal-parietal and left cyaxqzbk-lnrzkevtb-zynqqerd infarcts. No suspicious postcontrast enhancement within limitations related to motion artifact. Dictated by: Denice Ireland MD, PhD on 10/05/2021 at 12:45 Approved by: Denice Ireland MD, PhD on 10/05/2021 at 12:48
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
--- NOTE | 2021-10-05 11:04 | ED_ITS ---
HPI - SOB/Dyspnea General Chief Complaint: Shortness of Breath/Dyspnea Stated Complaint: States poss TIA/ trouble breathing Time Seen by Provider: 10/05/21 10:40 Mode of arrival: Family Vehicle History of Present Illness HPI Narrative: This is a 71-year-old female with prior stroke in July, she also has reported lung cancer and is currently on immune therapy. Patient is anticoagulated on Eliquis. She went to [facility], she had developed DVTs and pulmonary emboli and had an IVC filter placed. This was removed and then she had recurrent clots and stroke afterwards. She is now with IVC filter replaced and is still on Eliquis. Patient's states he thinks that she had some more episodes of TIA or stroke in the past several days. She had expressive aphasia and left- sided neglect but states her speech had significantly improved she was walking and over the last several days has been less able to ambulate until she can not. He states her speech is significantly deteriorated. He noted some new left facial droop the other day. Patient is noted to be quite hypoxic here unknown if she was hypoxic home but he states she seems very agitated the last several days. He states she has had increasing difficulty with breathing. No fevers. No cold cough or congestion. Has not complained of any chest pain. Patient has not had any nausea or vomiting. No diarrhea constipation or urinary symptoms. Besides her IVC filter she has not had any other surgeries according to her . No tobacco, occasional alcohol, no illicit. Her primary care provider is Sharlene Dunn on [place]. No known drug allergies. Related Data Home Medications Medication Instructions Recorded Confirmed atorvastatin 40 mg tablet mg 07/16/21 azelastine 137 mcg (0.1 %) nasal INTRANASAL 07/16/21 spray aerosol Allergies Allergy/AdvReac Type Severity Reaction Status Date / Time No Known Drug Allergies Allergy Verified 10/05/21 10:54 Review of Systems Review of Systems ROS Unobtainable: All systems reviewed & are unremarkable except as noted in HPI and below (obtained from .) Patient History Social History Smoking Status: Never smoker Smoking Status: Never smoker alcohol intake frequency: 0-2 drinks per day Alcohol type: wine Substance Use Type: does not use Exam Narrative Exam Narrative: GEN: Ill-appearing female, alert, patient appears to be in severe distress. Patient does try to engage in conversation, nods her head yes and no. HEENT: Atraumatic, pupils are equal round reactive to light, extraocular movem ents are intact, nares are clear, Throat is clear without any exudates, erythema, tonsillar enlargement or uvular deviation, ? facial droop. HEART: Tachycardic but regular rate and rhythm without murmur, clicks, rubs. Pulses equal upper lower extremities. LUNGS:Lungs mild decreased bilaterally but air flow is heard bilaterally in the upper lungs, no wheezes, rales, bilateral bases have crackles, chest moves symmetrically, positive for tachypnea. ABD:bowel sounds normal, soft, non-tender, no guarding, rebound, rigidity, no masses noted, no hepatosplenomegaly, nondistended. :No CVA tenderness MSCL: Non-tender, no muscle atrophy, patient has movement of all four extremities. NEURO:CN 2-12 intact, sensation normal Initial Vital Signs Initial Vital Signs: Vital Signs Temperature 98.4 F 10/05/21 10:31 Pulse Rate 114 H 10/05/21 10:31 Respiratory Rate 33 H 10/05/21 10:31 Blood Pressure 124/60 10/05/21 10:31 Pulse Oximetry 78 L 10/05/21 10:31 Course Orders Ordered: ED Orders 10/05/21 10:50 CMP [Comprehensive Metabolic Panel] Stat Complete Blood Count AUTO DIFF Stat D Dimer Stat Lipase Stat NT-proBNP (BNP-Adult 18+) Stat Prothrombin Time INR Stat Troponin & CK Cardiac Panel Stat 10/05/21 10:52 COVID19 -Nasal RAPID/Pre-Proc Stat Respiratory Panel (Film Array) Stat 10/05/21 10:54 XR chest 1V Stat 10/05/21 10:56 CT angio chest PE protocol Stat CT head/brain wo/w con Stat 10/05/21 11:45 ABG [Arterial Blood Gas] Stat 10/05/21 12:40 Platelets Stat Type and Screen Stat Discontinued Medications Furosemide (Furosemide 40 Mg/4 Ml Vial) 40 mg IV NOW ONE Stop: 10/05/21 12:38 Last Admin: 10/05/21 12:48 Dose: 40 mg Documented by: JOE Sodium Chloride (Normal Saline 0.9%) 1,000 mls @ 150 mls/hr IV CONT LEVON Last Infusion: 10/05/21 15:50 Dose: 0 mls/hr Documented by: Admin: 10/05/21 11:13 Dose: 150 mls/hr Documented by: KEN Lorazepam (Lorazepam 2 Mg/Ml Inj) 0.5 mg IV NOW ONE Stop: 10/05/21 11:20 Last Admin: 10/05/21 11:23 Dose: 0.5 mg Documented by: JOE Lorazepam (Lorazepam 2 Mg/Ml Inj) 0.5 mg IV NOW ONE Stop: 10/05/21 11:54 Last Admin: 10/05/21 11:57 Dose: 0.5 mg Documented by: JOE Lorazepam (Lorazepam 2 Mg/Ml Inj) 1 mg IV NOW ONE Stop: 10/05/21 10:51 Last Admin: 10/05/21 12:20 Dose: 1 mg Documented by: JOE Morphine Sulfate (Morphine 10 Mg/Ml Inj) 10 mg INH NOW ONE Stop: 10/05/21 12:41 Last Admin: 10/05/21 12:48 Dose: 10 mg Documented by: JOE Morphine Sulfate (Morphine 4 Mg/Ml Inj) 4 mg IV NOW ONE Stop: 10/05/21 13:07 Last Admin: 10/05/21 13:11 Dose: 4 mg Documented by: JOE Morphine Sulfate (Morphine 4 Mg/Ml Inj) 4 mg IV Q2H PRN PRN Reason: agitation Last Admin: 10/05/21 15:34 Dose: 4 mg Documented by: JOE Reevaluation(s) Reevaluation #1: Patient CXR shows large pleural effusion. Would benefit from thoracentesis but noted to have INR 2.4 and platelets of 40. Platelets ordered. Patient and at bedside and she is on high flow. Attempting to get CT angio and after discussion patient is clear she does not wish to be intubated. Her states this is in alignment with her prior wishes, she does not wish to have CPR. Patients indicates she may not wish bipap or high flow but she is allowing at this time. Reevaluation #2: Patient is struggling more in the room and has difficulty maintaining O2 sats despite high-flow and medication for anxiety.? CT imaging has not resulted but able to review images she has a large pleural effusion that appears to be have p neumonia or other process such as ARDS on imaging.? Patient has made it clear she does not wish to be intubated, her has suggested that she really does not want aggressive intervention and after discussion that thoracentesis may be helpful but not resolve all of her medical issues decision was made to cease aggressive interventions and make her comfort measures.? They have family coming from [place] who will be here in several hours so plan to continue high-flow until family arrives.? And medications for comfort and admission Reevaluation #3: Patient admitted waiting bed upstairs. Patient's family had arrived from [place]. High-flow O2 was stopped. Patient quickly desaturated became bradycardic and time of at 1:50 p.m. Admitting physician contacted and updated by nursing. Time: 15:30 Consultations Consultation #1: Dr. Franco, hospitalist. Discussed patient has history of stroke, reported history of lung cancer with pleural effusion that had thoracentesis at [facility] in the last month. Patient is quite ill, hypoxic and struggling on high-flow. Would benefit from thoracentesis but INR is quite elevated with low platelets. Will take some time to get platelets from [place] and after long discussion with family decision was made to change patient to comfort measures from limited intervention. Vital Signs Vital signs: Vital Signs - 8 hr 10/05/21 11:54 10/05/21 12:00 10/05/21 12:01 Pulse Rate 111 H 107 H 102 H Respiratory Rate 22 38 H 41 H Blood Pressure 122/56 L 122/56 L Pulse Oximetry 92 91 91 10/05/21 12:11 10/05/21 12:30 10/05/21 12:35 Pulse Rate 107 H 112 H 110 H Respiratory Rate 25 H 37 H Blood Pressure 127/60 135/104 H Pulse Oximetry 92 94 93 10/05/21 12:37 10/05/21 12:56 10/05/21 12:58 Pulse Rate 114 H 121 H Respiratory Rate 48 H 36 H Blood Pressure 146/82 H Pulse Oximetry 87 L 82 L 81 L 10/05/21 13:00 10/05/21 13:01 10/05/21 13:30 Pulse Rate 122 H 123 H 116 H Respiratory Rate 49 H 36 H 22 Blood Pressure 154/70 H Pulse Oximetry 79 L 80 L 83 L 06/02/22 13:31 10/05/21 14:00 10/05/21 14:01 Pulse Rate 116 H 118 H 118 H Respiratory Rate 23 17 16 Blood Pressure 142/59 H 133/58 L Pulse Oximetry 83 L 85 L 85 L 10/05/21 14:30 10/05/21 14:31 10/05/21 15:00 Pulse Rate 114 H 114 H 104 H Respiratory Rate 15 15 15 Blood Pressure 111/52 L 108/53 L Pulse Oximetry 86 L 86 L 88 L 10/05/21 15:03 10/05/21 15:25 10/05/21 15:30 Pulse Rate 104 H 101 H Respiratory Rate 15 20 37 H Blood Pressure Pulse Oximetry 88 L 76 L 56 L 10/05/21 15:49 Pulse Rate 0 L Respiratory Rate 0 L Blood Pressure Pulse Oximetry 0 L MDM - SOB/Dyspnea Lab Data Result diagrams: 10/05/21 10:50 10/05/21 10:50 Labs: Lab Results 10/05/21 10/05/21 10/05/21 Range/Units 10:50 10:50 10:50 WBC 19.6 H (4.5-11.0) X10^3/uL RBC 4.59 (4.0-5.2) X10^6/uL Hgb 13.4 (12.0-16.0) g/dL Hct 40.0 (36-46) % MCV 87.1 (80-100) fL MCH 29.3 (26-34) PG MCHC 33.6 (30-36) % RDW 15.9 H (11.6-14.8) % Plt Count 40 L (150-400) X10^3/uL Neut % (Auto) 86.3 H (50-75) % Lymph % (Auto) 6.4 L (25-40) % [place] % (Auto) 6.7 (3-14) % Eos % (Auto) 0.2 L (2-4) % Baso % (Auto) 0.4 (0-2) % Neut # (Auto) 01584 H (8548-0681) /uL Lymph # (Auto) 1300 (5446-4642) /uL [place] # (Auto) 1300 H (0-900) /uL Eos # (Auto) 0 (0-450) /uL Baso # (Auto) 100 (0-100) /uL PT 27.5 H (10.1-12.7) SECONDS INR 2.4 H (0.9-1.3) D-Dimer 5210 H (<230) ng/mL ABG pH (7.35-7.45) ABG pCO2 (35-45) mmHg ABG pO2 (80-100) mmHg ABG HCO3 (22-26) mmol/L ABG Total CO2 (21-31) mmol/L ABG O2 Saturation (95-100) % ABG Base Excess (-2-2) mmol/L FiO2 Sodium (137-145) mmol/L Potassium (3.4-5.1) mmol/L Chloride (98-107) mmol/L Carbon Dioxide (22-32) mmol/L BUN (7-17) mg/dL Creatinine (0.52-1.04) mg/dL Estimated GFR (>60) mL/min BUN/Creatinine Ratio (6-22) Glucose (80-110) mg/dL Calcium (8.4-10.2) mg/dL Total Bilirubin (0.2-1.3) mg/dL AST (14-36) IU/L ALT (<35) IU/L Alkaline Phosphatase (38-126) U/L Total Creatine Kinase 137 H (30-135) U/L CK-MB (CK-2) 13.70 H (<2.37) ng/mL CK-MB (CK-2) Rel Index 10.0 H* (1.5-5.0) % Troponin I 0.688 H* (0.01-0.034) ng/mL NT-Pro-B Natriuret Pep 45783 H (<125) pg/mL Total Protein (6.3-8.2) g/dL Albumin (3.5-5.0) g/dL Globulin (1.7-4.1) g/dL Albumin/Globulin Ratio (1.0-2.8) Lipase 132 (23-300) U/L Chlamy pneumoniae PCR (Not Detect) Adenovirus (PCR) (Not Detect) B. pertussis DNA (PCR) (Not Detecte) B.parapertussis DNA PCR (Not Detecte) Coronavirus OC43 (PCR) (Not Detect) Coronavirus HKU1 (PCR) (Not Detect) Coronavirus 229E (PCR) (Not Detect) SARS-CoV-2 (PCR) (Negative) Coronavirus NL63 (PCR) (Not Detect) Human Metapneumovir PCR (Not Detect) Influenza Type A (PCR) (Not Detect) Influenza Type B (PCR) (Not Detect) M. pneumoniae (PCR) (Not Detect) Parainfluenza 1 (PCR) (Not Detect) Parainfluenza 2 (PCR) (Not Detect) Parainfluenza 3 (PCR) (Not Detect) Parainfluenza 4 (PCR) (Not Detect) RSV (PCR) (Not Detect) Entero/Rhino (PCR) (Not Detect) Blood Type Antibody Screen 10/05/21 10/05/21 10/05/21 Range/Units 10:50 10:52 10:52 WBC (4.5-11.0) X10^3/uL RBC (4.0-5.2) X10^6/uL Hgb (12.0-16.0) g/dL Hct (36-46) % MCV (80-100) fL MCH (26-34) PG MCHC (30-36) % RDW (11.6-14.8) % Plt Count (150-400) X10^3/uL Neut % (Auto) (50-75) % Lymph % (Auto) (25-40) % [place] % (Auto) (3-14) % Eos % (Auto) (2-4) % Baso % (Auto) (0-2) % Neut # (Auto) (9786-2726) /uL Lymph # (Auto) (5137-9864) /uL [place] # (Auto) (0-900) /uL Eos # (Auto) (0-450) /uL Baso # (Auto) (0-100) /uL PT (10.1-12.7) SECONDS INR (0.9-1.3) D-Dimer (<230) ng/mL ABG pH (7.35-7.45) ABG pCO2 (35-45) mmHg ABG pO2 (80-100) mmHg ABG HCO3 (22-26) mmol/L ABG Total CO2 (21-31) mmol/L ABG O2 Saturation (95-100) % ABG Base Excess (-2-2) mmol/L FiO2 Sodium 137 (137-145) mmol/L Potassium 4.9 (3.4-5.1) mmol/L Chloride 103 (98-107) mmol/L Carbon Dioxide 23 (22-32) mmol/L BUN 27 H (7-17) mg/dL Creatinine 0.89 (0.52-1.04) mg/dL Estimated GFR > 60 (>60) mL/min BUN/Creatinine Ratio 30.3 H (6-22) Glucose 152 H (80-110) mg/dL Calcium 9.8 (8.4-10.2) mg/dL Total Bilirubin 1.1 (0.2-1.3) mg/dL AST 60 H (14-36) IU/L ALT 34 (<35) IU/L Alkaline Phosphatase 124 (38-126) U/L Total Creatine Kinase (30-135) U/L CK-MB (CK-2) (<2.37) ng/mL CK-MB (CK-2) Rel Index (1.5-5.0) % Troponin I (0.01-0.034) ng/mL NT-Pro-B Natriuret Pep (<125) pg/mL Total Protein 7.4 (6.3-8.2) g/dL Albumin 4.2 (3.5-5.0) g/dL Globulin 3.2 (1.7-4.1) g/dL Albumin/Globulin Ratio 1.3 (1.0-2.8) Lipase (23-300) U/L Chlamy pneumoniae PCR Not detected (Not Detect) Adenovirus (PCR) Not detected (Not Detect) B. pertussis DNA (PCR) Not detected (Not Detecte) B.parapertussis DNA PCR Not detected (Not Detecte) Coronavirus OC43 (PCR) Not detected (Not Detect) Coronavirus HKU1 (PCR) Not detected (Not Detect) Coronavirus 229E (PCR) Not detected (Not Detect) SARS-CoV-2 (PCR) Negative Not detected (Negative) Coronavirus NL63 (PCR) Not detected (Not Detect) Human Metapneumovir PCR Not detected (Not Detect) Influenza Type A (PCR) Not detected (Not Detect) Influenza Type B (PCR) Not detected (Not Detect) M. pneumoniae (PCR) Not detected (Not Detect) Parainfluenza 1 (PCR) Not detected (Not Detect) Parainfluenza 2 (PCR) Not detected (Not Detect) Parainfluenza 3 (PCR) Not detected (Not Detect) Parainfluenza 4 (PCR) Not detected (Not Detect) RSV (PCR) Not detected (Not Detect) Entero/Rhino (PCR) Not detected (Not Detect) Blood Type Antibody Screen 10/05/21 10/05/21 Range/Units 11:45 12:40 WBC (4.5-11.0) X10^3/uL RBC (4.0-5.2) X10^6/uL Hgb (12.0-16.0) g/dL Hct (36-46) % MCV (80-100) fL MCH (26-34) PG MCHC (30-36) % RDW (11.6-14.8) % Plt Count (150-400) X10^3/uL Neut % (Auto) (50-75) % Lymph % (Auto) (25-40) % [place] % (Auto) (3-14) % Eos % (Auto) (2-4) % Baso % (Auto) (0-2) % Neut # (Auto) (4801-8398) /uL Lymph # (Auto) (8504-7100) /uL [place] # (Auto) (0-900) /uL Eos # (Auto) (0-450) /uL Baso # (Auto) (0-100) /uL PT (10.1-12.7) SECONDS INR (0.9-1.3) D-Dimer (<230) ng/mL ABG pH 7.50 H (7.35-7.45) ABG pCO2 24.7 L* (35-45) mmHg ABG pO2 65 L (80-100) mmHg ABG HCO3 19 L (22-26) mmol/L ABG Total CO2 20 L (21-31) mmol/L ABG O2 Saturation 95 (95-100) % ABG Base Excess -4.0 L (-2-2) mmol/L FiO2 55 Sodium (137-145) mmol/L Potassium (3.4-5.1) mmol/L Chloride (98-107) mmol/L Carbon Dioxide (22-32) mmol/L BUN (7-17) mg/dL Creatinine (0.52-1.04) mg/dL Estimated GFR (>60) mL/min BUN/Creatinine Ratio (6-22) Glucose (80-110) mg/dL Calcium (8.4-10.2) mg/dL Total Bilirubin (0.2-1.3) mg/dL AST (14-36) IU/L ALT (<35) IU/L Alkaline Phosphatase (38-126) U/L Total Creatine Kinase (30-135) U/L CK-MB (CK-2) (<2.37) ng/mL CK-MB (CK-2) Rel Index (1.5-5.0) % Troponin I (0.01-0.034) ng/mL NT-Pro-B Natriuret Pep (<125) pg/mL Total Protein (6.3-8.2) g/dL Albumin (3.5-5.0) g/dL Globulin (1.7-4.1) g/dL Albumin/Globulin Ratio (1.0-2.8) Lipase (23-300) U/L Chlamy pneumoniae PCR (Not Detect) Adenovirus (PCR) (Not Detect) B. pertussis DNA (PCR) (Not Detecte) B.parapertussis DNA PCR (Not Detecte) Coronavirus OC43 (PCR) (Not Detect) Coronavirus HKU1 (PCR) (Not Detect) Coronavirus 229E (PCR) (Not Detect) SARS-CoV-2 (PCR) (Negative) Coronavirus NL63 (PCR) (Not Detect) Human Metapneumovir PCR (Not Detect) Influenza Type A (PCR) (Not Detect) Influenza Type B (PCR) (Not Detect) M. pneumoniae (PCR) (Not Detect) Parainfluenza 1 (PCR) (Not Detect) Parainfluenza 2 (PCR) (Not Detect) Parainfluenza 3 (PCR) (Not Detect) Parainfluenza 4 (PCR) (Not Detect) RSV (PCR) (Not Detect) Entero/Rhino (PCR) (Not Detect) Blood Type O Positive Antibody Screen Negative Imaging Data Chest x-ray: Radiologist's Impression: Cami Hill??71??F??1950 ? Allergy/Adv: No Known Drug Allergies Close Chest X-Ray (Signed) Freddy Blackwood - 10/05/21 Brain MRI (Signed) Call,Mike - 07/16/21 Chest/Abdomen/Pelvis CT (Signed) Call,Mike - 07/16/21 Chest X-Ray (Signed) Minh Smith - 07/16/21 Head/Neck CTA (Signed) Minh Smith - 07/16/[address] (Signed) Minh Smith - 07/16/21 Launch?Image [address] [address] XRay Report Signed Patient: Cami Hill MR#: [id number] : 1950 Acct:[id number] Age/Sex: 71 / F Date of Service: 10/05/21 Loc: ED Accession Number: [id number] ?? Procedure: XR chest 1V Ordering Provider: Lata Clay D.O. PROCEDURE:? XR CHEST 1V ? INDICATIONS:? sob, low O2, hx lung ca, tias ? TECHNIQUE:? One view of the chest was acquired.? ? COMPARISON:? [facility]ly [facility], CT, CT CHEST ABD PEL W CON, 07/16/2021, 2:27.? Former[facility], CR, XR CHEST 1V, 07/16/2021, 1:32. ? FINDINGS:? ? There is a moderate to large pleural effusion which is increased in size when compared with 07/16/2021 examination.? The previously described right lung and pleural masses are not definitively identified.? Also new from comparison CT there is diffuse increased interstitial and airspace opacity in the left lung, nonspecific.? There is also some increased interstitial and airspace opacity in the aerated portion of the right upper lobe.? Cardiac borders are largely obscured but appear to be normal in size. ? IMPRESSION: ? Increased size of right pleural effusion, now moderate to large. ? Diffusely increased interstitial and airspace opacities in both lungs.? This could represent pulmonary edema, pulmonary hemorrhage, or ARDS or an infectious process.? Lymphangitic carcinomatosis could be present also.? ? ? Dictated by: Freddy Blackwood M.D. on 10/05/2021 at 11:43 ? ? Approved by: Freddy Blackwood M.D. on 10/05/2021 at 11:48?? ECG Data Attestation: I personally reviewed and interpreted this ECG as follows: Prior ECG tracings: available for review Interpretation: Sinus tachycardia left axis deviation, left bundle-branch block. Rate of 116 IL 144 QRS 142 QTC 415. Patient has prior from 07/16/2021 which has left bundle branch no acute ST changes. MDM Narrative Medical decision making narrative: This is a 71-year-old female with known lung cancer, recent pleural effusion and had thoracentesis, multiple strokes who is currently on Eliquis and has IVC filter in place as well. Patient's states she has had multiple TIA and stroke like symptoms that have worsened her baseline aphasia and weakness to the point of being unable to walk at home over the last several days and that she has had increasing agitation and anxiety arrival patient pulse ox is quite low at 78%. Patient chest x-ray shows large pleural effusion, attempted non- rebreather which improved her somewhat but was placed on high-flow and had much more improvement. She has versus infectious, low platelets, normal hemoglobin. Patient's INR is elevated at 2.4 she is on Eliquis, D-dimer is 5200 and although on Eliquis concern for PE is present. Patient has normal renal function, electrolytes with a glucose of 152, troponin is positive although [place] [address], blood gas shows alkalosis primarly respiratory on high-flow 50% FiO2, 50 liters/minute and 22 respiratory rate. She is COVID negative. Because of her stroke-like symptoms attempted to get CT angio but based on timing CT of the head with contrast was obtained also evaluate for metastases and she has had new neurologic changes, this did not show acute change, CT angio does not show pulmonary emboli shows a large loculated right pleural effusion as well soft tissue densities in the right anterior pleural space indicating pleural carcinomatosis and bilateral pneumonia. Patient has severe airspace opacities in the right mid lower lung with moderate to severe throughout the left upper and lower lobes. After discussion with at length patient has already indicated she does not wish to be intubated or have CPR. Discussed risks of thoracentesis with her INR platelets, we do have platelets ordered but they come from [place] which will take several hours. After further discussion family a lacks not to proceed and to be comfort measures. Case was discussed with hospitalist accepts for ad mission. Plan to stay on high-flow until family can arrive from [place] and then was removed, patient decompensated shortly afterwards and time of was at 3:50 p.m. All questions answered for and daughter who was at bedside. Discharge Plan Departure Patient Disposition: Clinical Impression: Acute respiratory failure with hypoxia, CHF (congestive heart failure), Pleural effusion, Lung cancer Date/Time: 10/05/21 16:48
[2021-10-05] MEDS: SODIUM CHLORIDE 0.9% 1,000 ML 150 ML IV (11:13)
[2021-10-05] MEDS: LORazepam 2 MG/ML INJ 0.5 MG IV ×2 (11:23→11:57)
[2021-10-05 11:24] LABS: Add Manual Diff / Slide Review NO; Basophils Absolute Auto 100 /uL (0-100); Basophils Percent Auto 0.4 % (0-2); Eosinophils Absolute Auto 0 /uL (0-450); Eosinophils Percent Auto 0.2 % (2-4); Hemoglobin 13.4 g/dL (12.0-16.0); Lymphocytes Absolute Auto 1300 /uL (1100-4500); Lymphocytes Percent Auto 6.4 % (25-40); Mean Corpuscular HGB Conc 33.6 % (30-36); Mean Corpuscular Hemoglobin 29.3 PG (26-34); Mean Corpuscular Volume 87.1 fL (80-100); Monocytes Absolute Auto 1300 /uL (0-900); Monocytes Percent Auto 6.7 % (3-14); Neutrophils Absolute Auto 16900 /uL (1500-7000); Neutrophils Percent Auto 86.3 % (50-75); Platelet Count 40 X10^3/uL (150-400); Red Blood Cell Count 4.59 X10^6/uL (4.0-5.2); Red Cell Distribution Width 15.9 % (11.6-14.8); White Blood Cell Count 19.6 X10^3/uL (4.5-11.0)
[2021-10-05 11:25] LABS: INR 2.4 (0.9-1.3); Prothrombin Time 27.5 SECONDS (10.1-12.7)
[2021-10-05 11:29] LABS: Creatine Kinase 137 U/L (30-135); Lipase 132 U/L (23-300)
[2021-10-05 11:31] LABS: Alanine Aminotransferase 34 IU/L (<35); Albumin 4.2 g/dL (3.5-5.0); Albumin Globulin Ratio 1.3 (1.0-2.8); Alkaline Phosphatase 124 U/L (38-126); Aspartate Aminotransferase 60 IU/L (14-36); BUN Creatinine Ratio 30.3 (6-22); Bilirubin Total 1.1 mg/dL (0.2-1.3); Blood Urea Nitrogen 27 mg/dL (7-17); Calcium 9.8 mg/dL (8.4-10.2); Carbon Dioxide 23 mmol/L (22-32); Chloride 103 mmol/L (98-107); Estimated Glomerular Filt Rate > 60 mL/min (>60); Globulin 3.2 g/dL (1.7-4.1); Glucose 152 mg/dL (80-110); HEMOLYSIS < 15 (0-50); Potassium 4.9 mmol/L (3.4-5.1); Sodium 137 mmol/L (137-145); Total Protein 7.4 g/dL (6.3-8.2)
[2021-10-05 11:42] LABS: NT-proBNP (BNP-Adult 18+) 22400 pg/mL (<125)
[2021-10-05 11:45] LABS: COVID19 -Nasal RAPID Negative (Negative)
[2021-10-05 12:04] LABS: D Dimer 5210 ng/mL (<230)
[2021-10-05 12:12] LABS: Troponin I 0.688 ng/mL (0.01-0.034)
[2021-10-05] MEDS: LORazepam 2 MG/ML INJ 1 MG IV (12:20)
[2021-10-05] MEDS: MORPHINE 10 MG/ML INJ INH (12:48)
[2021-10-05] MEDS: FUROSEMIDE 40 MG/4 ML VIAL IV (12:48)
[2021-10-05 12:49] LABS: Adenovirus Not Detected (Not Detect); Coronavirus 229E Not Detected (Not Detect); SARS- CoV-2 Not Detected (Not Detecte)
[2021-10-05 12:50] LABS: B. parapertussis Not Detected (Not Detecte); Bordetella pertussis Not Detected (Not Detecte); Chlamydophila pneumoniae Not Detected (Not Detect); Coronavirus HKU1 Not Detected (Not Detect); Coronavirus NL 63 Not Detected (Not Detect); Coronavirus OC43 Not Detected (Not Detect); Human Metapneumovirus Not Detected (Not Detect); Human Rhinovirus/Enterovirus Not Detected (Not Detect); Influenza A Not Detected (Not Detect); Influenza B Not Detected (Not Detect); Mycoplasma pneumoniae Not Detected (Not Detect); Parainfluenza Virus 1 Not Detected (Not Detect); Parainfluenza Virus 2 Not Detected (Not Detect); Parainfluenza Virus 3 Not Detected (Not Detect); Parainfluenza Virus 4 Not Detected (Not Detect); Respiratory Syncytial Virus Not Detected (Not Detect)
--- NOTE | 2021-10-05 12:58 | RT ---
DR. HASSAN IS AWARE OF PT STATUS, INCLUDING O2 DELIVERY AND DEMAND, AND RESPIRATORY RATE.
--- NOTE | 2021-10-05 12:59 | PC.NURSE ---
Pt taken to CT scan on high flow NC and refinery operator helper with RT. Pt given Ativan in CT scan for agitation and restlessness. Pt returned with increasing agitation, hypoxia. RT increased to 100% FIO2 and given nebulized Morphine. pt repositioned numerous times. Soft wrist restraint placed on right wrist d/t pt continually taking off NC with right hand.
[2021-10-05] MEDS: MORPHINE 4 MG/ML INJ IV ×2 (13:11→15:34)
--- NOTE | 2021-10-05 13:13 | PC.NURSE ---
Conversation with and Dr Clay resulted in pt being transitioned to comfort care. Pt will remain on high flow until daughter arrives then will be transitioned off.
[2021-10-05 14:39] LABS: PCO2 ABG 24.7 mmHg (35-45); PO2 ABG 65 mmHg (80-100)
[2021-10-05 14:41] LABS: HCO3 ABG 19 mmol/L (22-26); Oxygen Saturation ABG 95 % (95-100); TCO2 ABG 20 mmol/L (21-31)
[2021-10-05 14:45] LABS: Fractionated Inspired Oxygen 55
--- NOTE | 2021-10-05 15:34 | PC.NURSE ---
Pt placed on room air, given morphine for air hunger and comfort. and daughter at bedside.
--- NOTE | 2021-10-05 15:50 | PC.NURSE ---
Addendum entered by Grisel Morales R.N. 10/05/21 16:05: 1530 Original Note: PT time of 1350, called by Dr Clay.
--- NOTE | 2021-10-05 16:37 | PC.NURSE ---
Called Procurement Donor, and Instrument Adjuster. Pt's had not picked out a home and so [facility] was called and will poultry picker pt. Instrument Adjuster code [id number] Procurement Case # [id number]
== END 2021-10-05 16:48 | disposition expired ==
PROVIDERS: Emergency Provider Emergency Medicine; PCP Nurse Practitioner Family; Referring Provider Emergency Medicine
DX: J96.01 Acute respiratory failure with hypoxia (principal); C34.90 Malignant neoplasm of unspecified part of unspecified bronchus or lung; J91.0 Malignant pleural effusion; I50.9 Heart failure, unspecified; I26.99 Other pulmonary embolism without acute cor pulmonale; I69.359 Hemiplegia and hemiparesis following cerebral infarction affecting unspecified side; I69.320 Aphasia following cerebral infarction; I44.7 Left bundle-branch block, unspecified; Z79.01 Long term (current) use of anticoagulants; Z20.822 Contact with and (suspected) exposure to COVID-19
CPT/HCPCS: 36415; 36600; 70470; 71045; 71275; 80053; 82550; 82553; 82805; 83690; 83880; 84484; 85025; 85379; 85610; 86850; 86900; 86901; 87633; 87635; 93005; 94640; 96374; 96375; 96376; 99285; 99291; 99292; C9803; J1940; J2060; J2270